=== PATIENT | female | born 1990 | race Two or more races ===

== ENCOUNTER 2016-10-02 18:10 | Emergency (ER) | payer SELFPAY ==
[~2016-10-02] VITALS: Ht 160 cm; Wt 59.0 kg
--- NOTE | 2016-10-02 18:55 | Emergency Room Report ---
History of Present Illness General Chief Complaint: Abdominal Pain Source: Patient, EMS (OMAR CLARKE P.A.) Present Illness HPI 18-year-old female complains of left lower quadrant pain x1 hour. 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 Said pain was acute onset while sitting down pain Sinemet 10 that radiates from her lower left quadrant to her left flank. Patient denies any other associated symptom. No nausea, vomiting, dysuria, increased urinary frequency, diarrhea, fever, chills, bloating, increased flatulence, chest pain, heartburn, constipation. (OMAR CLARKE P.A.) Allergies: Coded Allergies: No Known Allergies (Unverified , 10/02/16) Patient History Last Menstrual Period: SEP 11, 2016 Now: No (OMAR CLARKE P.A.) Nursing Documentation-[facility] Past Medical History: No Stated History (OMAR CLARKE P.A.) Physical Exam Vital Signs Date Time Temp Pulse Resp B/P Pulse Ox O2 Delivery O2 Flow Rate FiO2 10/02/16 18:05 98.1 72 15 114/75 100 Room Air (OMAR CLARKE P.A.) Medical Decision Making Diagnostic Impression: Primary Impression: Abdominal pain Qualified Codes: R10.12 - Left upper quadrant pain ER Course Hospital Course 26-year-old F presents to ED with abdominal pain Clinical course she initially seen and evaluated by my PA; please see his note for full history and physical Labs - no leukocytosis, electrolytes ok, LFTs normal, UA unremarkable CT scan shows no acute pathology On reassessment I evaluated the patient. Patient's pain was localized to the left upper quadrant, more specifically the left lower ribs. States the pain occurred while heavy lifting. Patient works at a SNF. I believe the pain is muscular. I will treat with Toradol and flexeril here I feel this is a highly complex case requiring extensive working including EKG/ Rhythm strip, Xray/CT/US, Blood/urine lab work, repeat exams while in ED, and administration of strong opiates/narcotics for pain control, admission to hospital or close patient follow up. Diagnosis - abdominal pain Stable and discharged to home with Rx Motrin, Flexeril. Followup with PMD. Return to ED if symptoms recur or worsen Labs Test 10/02/16 19:15 10/02/16 20:06 White Blood Count 8.8 K/UL (4.8-10.8) Red Blood Count 5.10 M/UL (4.20-5.40) Hemoglobin 14.7 G/DL (12.0-16.0) Hematocrit 45.5 % (37.0-47.0) Mean Corpuscular Volume 89 FL (80-99) Mean Corpuscular Hemoglobin 28.8 PG (27.0-31.0) Mean Corpuscular Hemoglobin Concent 32.3 G/DL (32.0-36.0) Red Cell Distribution Width 12.0 % (11.6-14.8) Platelet Count 209 K/UL (150-450) Mean Platelet Volume 8.1 FL (6.5-10.1) Neutrophils (%) (Auto) 71.4 % (45.0-75.0) Lymphocytes (%) (Auto) 22.3 % (20.0-45.0) Monocytes (%) (Auto) 5.6 % (1.0-10.0) Eosinophils (%) (Auto) 0.2 % (0.0-3.0) Basophils (%) (Auto) 0.4 % (0.0-2.0) Urine Color Pale yellow Urine Appearance Clear Urine pH 7 (4.5-8.0) Urine Specific Irons 1.005 (1.005-1.035) Urine Protein Negative (NEGATIVE) Urine Glucose (UA) Negative (NEGATIVE) Urine Ketones 2+ (NEGATIVE) Urine Occult Blood Negative (NEGATIVE) Urine Nitrite Negative (NEGATIVE) Urine Bilirubin Negative (NEGATIVE) Urine Urobilinogen Normal MG/DL (0.0-1.0) Urine Leukocyte Esterase 1+ (NEGATIVE) Urine RBC 0-2 /HPF (0 - 2) Urine WBC 5-10 /HPF (0 - 2) Urine Squamous Epithelial Cells Moderate /LPF (NONE/OCC) Urine Calcium Oxalate Crystals Few /LPF (NONE) Urine Bacteria Few /HPF (NONE) Sodium Level 138 mEQ/L (135-145) Potassium Level 3.8 mEQ/L (3.4-4.9) Chloride Level 99 mEQ/L (98-107) Carbon Dioxide Level 22 mEQ/L (20-30) Anion Gap 17 (5-15) Blood Urea Nitrogen 11 mg/dL (7-23) Creatinine 0.6 mg/dL (0.5-0.9) Estimat Glomerular Filtration Rate > 60 mL/min (>60) Glucose Level 84 mg/dL (74-106) Calcium Level 9.1 mg/dL (8.6-10.2) Total Bilirubin < 0.2 mg/dL (0.0-1.2) Aspartate Amino Transf (AST/SGOT) 19 U/L (5-40) Alanine Aminotransferase (ALT/SGPT) 9 U/L (3-33) Alkaline Phosphatase 81 U/L (35-104) Total Protein 7.7 g/dL (6.6-8.7) Albumin 4.5 g/dL (3.5-5.2) Globulin 3.2 g/dL Albumin/Globulin Ratio 1.4 (1.0-2.7) Lipase 32 U/L (< 60) Human Chorionic Gonadotropin, Quant < 1 mIU/mL Urine HCG, Qualitative Negative (MARICRUZ CALLOWAY M.D.) CT/MRI/US Diagnostic Results CT/MRI/US Diagnostic Results : Imaging Test Ordered: CT A/P Impression no acute process (MARICRUZ CALLOWAY M.D.) Last Vital Signs Date Time Temp Pulse Resp B/P Pulse Ox O2 Delivery O2 Flow Rate FiO2 10/02/16 18:05 98.1 72 15 114/75 100 Room Air (OMAR CLARKE P.A.) Status: improved (MAIRCRUZ CALLOWAY M.D.) Disposition: HOME, SELF-CARE Condition: Stable Scripts Cyclobenzaprine Hcl* (FLEXERIL*) 10 Mg Tablet 10 MG ORAL TID Y for Muscle Spasm, #20 TAB Prov: MARICRUZ CALLOWAY M.D. 10/02/16 Ibuprofen* (MOTRIN*) 600 Mg Tablet 600 MG ORAL Q8H Y for For Pain, #30 TAB 0 Refills Prov: MARICRUZ CALLOWAY M.D. 10/02/16 BETH CLARKEM P.A. Oct 02, 2016 18:55 MARICRUZ CALLOWAY M.D. Oct 03, 2016 02:56
[2016-10-02] MEDS ORDERED: Morphine Sulfate 4mg/ml Inj IVP ONE (19:00)
[2016-10-02 19:49] LABS: BASOPHILS % (AUTO) 0.4 % (0.0-2.0); EOSINOPHILS % (AUTO) 0.2 % (0.0-3.0); LYMPHOCYTES % (AUTO) 22.3 % (20.0-45.0); MEAN CORPUSCULAR HEMOGLOBIN 28.8 PG (27.0-31.0); MEAN CORPUSCULAR HGB CONC 32.3 G/DL (32.0-36.0); MEAN CORPUSCULAR VOLUME 89 FL (80-99); MEAN PLATELET VOLUME 8.1 FL (6.5-10.1); MONOCYTES % (AUTO) 5.6 % (1.0-10.0); NEUTROPHILS % (AUTO) 71.4 % (45.0-75.0); PLATELET COUNT 209 K/UL (150-450); WHITE BLOOD COUNT 8.8 K/UL (4.8-10.8)
[2016-10-02 19:52] LABS: KETONES,URINE 2+ (NEGATIVE); LEUKOCYTE ESTERASE ,URINE 1+ (NEGATIVE); NITRITE,URINE NEGATIVE (NEGATIVE); PH,URINE 7 (4.5-8.0); PROTEIN,URINE NEGATIVE (NEGATIVE); UROBILINOGEN,URINE NORMAL MG/DL (0.0-1.0)
[2016-10-02 19:53] LABS: APPEARANCE,URINE CLEAR
[2016-10-02 20:02] LABS: RBC,URINE 0-2 /HPF (0 - 2); SQUAMOUS EPITHELIAL CELL,UR MODERATE /LPF (NONE/OCC)
[2016-10-02 20:03] LABS: BACTERIA,URINE FEW /HPF; CALCIUM OXALATE CRYSTALS,UR FEW /LPF
[2016-10-02 20:15] LABS: ALANINE AMINOTRANSFERASE 9 U/L (3-33); ALBUMIN/GLOBULIN RATIO 1.4 (1.0-2.7); ANION GAP 17 (5-15); ASPARTATE AMINO TRANSFERASE 19 U/L (5-40); CALCIUM 9.1 mg/dL (8.6-10.2); CARBON DIOXIDE 22 mEQ/L (20-30); CHLORIDE 99 mEQ/L (98-107); CREATININE 0.6 mg/dL (0.5-0.9); GLOMERULAR FILTRATION RATE > 60 mL/min (>60); HEMOLYSIS 4; LIPASE 32 U/L (< 60); POTASSIUM 3.8 mEQ/L (3.4-4.9); SODIUM 138 mEQ/L (135-145); TOTAL PROTEIN 7.7 g/dL (6.6-8.7)
[2016-10-02] MEDS ORDERED: CYCLOBENZAPRINE10 MG ORAL (21:53)
[2016-10-02] MEDS ORDERED: IBUPROFEN600 MG ORAL (21:53)
[2016-10-02] MEDS ORDERED: Ketorolac 30mg Inj IV ONE (22:00)
[2016-10-02] MEDS ORDERED: Cyclobenzaprine 10mg Tab ORAL ONE (22:00)
[2016-10-02 22:10] VITALS: BP_SYST 105; BP_SYST 114; BP_DIAS 68; BP_DIAS 75
--- NOTE | 2016-10-03 09:33 | Diagnostic Imaging Report ---
Indication: Abdominal pain Technique: Continuous helical transaxial imaging of the abdomen and pelvis was obtained from the lung bases to the pubic symphysis. No intravenous contrast was administered. Coronal 2-D reformats were also obtained. Total Dose length Product (DLP): [address] Dose Index Volume (CTDIvol): 11, 8 mGy Comparison: none Findings: Lung bases are clear. There is no hydronephrosis or nephrolithiasis. No bowel obstruction or free air identified. There is a small amount of free fluid in the pelvis. Normal appendix demonstrated. Impression: No acute findings. Minimal free fluid within the pelvis which could be physiologic. Dr. Arriaga has communicated the preliminary results to the Emergency Department. There are no significant discrepancies. The CT scanner at [facility] is accredited by the [employer] and the scans are performed using protocols designed to limit radiation exposure to as low as reasonably achievable to attain images of sufficient resolution adequate for diagnostic evaluation.
== END 2016-10-02 22:10 | disposition home or self-care (01) ==
LOC: EDBD 18:10 → EMR 20:55
DX: R10.12 Left upper quadrant pain (principal)
CPT/HCPCS: 36415; 74176; 80053; 81003; 81025; 83690; 84702; 85025; 96361; 96374; 96375; 99284; J1885; J2270